=== PATIENT | female | born 1975 | race Hispanic/Latino ===

== ENCOUNTER 2021-08-25 15:00 | Inpatient (IN) | payer BC, OTHER ==
[~2021-08-25] VITALS: Ht 152.4 cm; Wt 80.9 kg
[2021-08-25] MEDS ORDERED: ACETAMINOPHEN WITH CODEINE 1 TAB TAB PO ONE (16:00)
[2021-08-25] MEDS ORDERED: ONDANSETRON 4MG TABLET ONE (16:52)
[2021-08-25] MEDS ORDERED: PROMETHAZINE HCL 25 MG/ML 1ML AMPULE IM ONE (17:00)
[2021-08-25] MEDS ORDERED: ONDANSETRON ODT 4MG TAB SL ONE (17:00)
[2021-08-25 17:07] LABS: BASOPHILS % (AUTO) 0.7 % (0.0-5.0); EOSINOPHILS % (AUTO) 7.1 % (0.0-8.0); HEMATOCRIT 44.4 % (36-48); LYMPHOCYTES % (AUTO) 33.9 % (21.0-51.0); MEAN CORPUSCULAR HEMOGLOBIN 30.5 pg (27.0-33.0); MEAN CORPUSCULAR HGB CONC 33.3 g/dL (32.0-36.0); MEAN CORPUSCULAR VOLUME 91.4 fL (79-99); MONOCYTES % (AUTO) 5.9 % (3.0-13.0); NEUTROPHILS % (AUTO) 51.9 % (40.0-77.0); PLATELET COUNT (AUTO) 163 K/uL (130-400); RED BLOOD CELL COUNT(AUTO) 4.86 MIL/uL (4.00-5.50); RED CELL DISTRIBUTION WIDTH 12.9 % (11.0-15.5); WHITE BLOOD COUNT (AUTO) 5.8 K/uL (4.8-10.8)
[2021-08-25] MEDS ORDERED: 0.9%NACL 50ML 50 ML IV ONE (17:07)
[2021-08-25 17:25] LABS: CREATININE 0.9 mg/dL (0.5-1.5); POTASSIUM 3.5 mmol/L (3.5-5.1)
[2021-08-25 17:46] LABS: ALBUMIN 3.7 g/dL (3.5-5.0); BILIRUBIN,TOTAL 4.4 mg/dL (0.2-1.0); CRP QUANTITATIVE 36.8 mg/L (0.00-9.0); TOTAL PROTEIN, SERUM 7.4 g/dL (6.0-8.3)
[2021-08-25] MEDS ORDERED: ACETAMINOPHEN WITH CODEINE 1 TAB TAB ONE (18:32)
[2021-08-25] MEDS ORDERED: NITROGLYCERIN 0.4 MG SL TAB SL PRN (19:30)
[2021-08-25] MEDS ORDERED: MORPHINE 2 MG SYG IV PRN (19:30)
[2021-08-25] MEDS ORDERED: HYDRALAZINE 20MG/ML VIAL IV PRN (19:30)
[2021-08-25] MEDS: PHARMACY COMMUNICATION MISC SCH ×3 (20:00→23:52)
[2021-08-25 20:12] LABS: AMYLASE 47 U/L (25-115); CHOLESTEROL 190 mg/dL (<200); HDL CHOLESTEROL 22 mg/dL (35-85); LDL DIRECT 112 mg/dL (0-99); LIPASE 99 U/L (114-286); TRIGLYCERIDES 236 mg/dL (30-200)
[2021-08-25] MEDS: INSULIN HUMULIN R 100 UNIT/ML 3ML SQ SCH (21:00)
[2021-08-25] MEDS: INSULIN GLARGINE 100 UNITS/ML 10 ML VIAL SQ SCH (21:00)
[2021-08-25 21:08] LABS: INR 1.31 (0.85-1.15); PROTHROMBIN TIME 13.9 SEC (9.6-11.6)
[2021-08-25 21:09] LABS: PARTIAL THROMBOPLASTIN TIME 26.1 SEC (26.3-35.5)
[2021-08-25] MEDS: LACTATED RINGERS 1000ML 1,000 ML IV SCH (21:29)
[2021-08-26] VITALS (21 sets, daily range): BP systolic 92–117; BP diastolic 52–77
[2021-08-26] MEDS: LACTATED RINGERS 1000ML 1,000 ML IV SCH ×3 (01:30→20:55)
[2021-08-26] MEDS ORDERED: INSU3INS3 SQ (01:35)
[2021-08-26] MEDS: ONDANSETRON 4MG INJ IV PRN ×3 (02:08→20:42)
[2021-08-26] MEDS ORDERED: PANT40TA54 PO (02:14)
[2021-08-26] MEDS ORDERED: BENA10TA77 PO (02:14)
[2021-08-26] MEDS ORDERED: SITA100T12 PO (02:17)
[2021-08-26] MEDS ORDERED: ESCI-8 PO (02:17)
[2021-08-26] MEDS ORDERED: EMPA25TA PO (02:17)
[2021-08-26] MEDS ORDERED: VERA120T92 PO (02:22)
[2021-08-26] MEDS ORDERED: IBUP1TAB PO (02:22)
[2021-08-26] MEDS ORDERED: MONT10TA32 PO (02:22)
[2021-08-26] MEDS ORDERED: PROM25SU58 RC (02:22)
[2021-08-26 02:27] LABS: APPEARANCE,URINE Clear (CLEAR); BILIRUBIN,URINE Moderate (NEGATIVE); COLOR,URINE Dark Yellow (YELLOW); GLUCOSE, URINE (UA) >=1000 mg/dL (NEGATIVE); KETONES,URINE Trace mg/dL (NEGATIVE); LEUKOCYTE ESTERASE ,URINE Trace (NEGATIVE); NITRATE,URINE Negative (NEGATIVE); OCCULT BLOOD,URINE Negative (NEGATIVE); PH,URINE 5.5 (5.0-8.0); PROTEIN,URINE Negative (NEGATIVE)
[2021-08-26 02:35] LABS: AMPHET/METH SCREEN,URINE NEGATIVE (NEGATIVE); BARBITURATE SCREEN, URINE NEGATIVE (NEGATIVE); BENZODIAZEPINES SCREEN,URINE NEGATIVE (NEGATIVE); CANNABINOID SCREEN,URINE NEGATIVE (NEGATIVE); COCAINE SCREEN,URINE NEGATIVE (NEGATIVE); OPIATE SCREEN,URINE POSITIVE (NEGATIVE); PHENCYCLIDINE SCREEN,URINE NEGATIVE (NEGATIVE)
[2021-08-26 02:36] LABS: BACTERIA,URINE None Seen /HPF (None Seen); RBC,URINE None Seen /HPF (0-1); WBC,URINE 0-1 /HPF (0-1); YEAST,URINE BUDDING None Seen /HPF (None Seen)
[2021-08-26 02:37] LABS: SQUAMOUS EPITHELIAL CELL,UR Rare /HPF (0-2)
[2021-08-26] MEDS: INSULIN HUMULIN R 100 UNIT/ML 3ML SQ SCH ×7 (05:35→20:10)
[2021-08-26] MEDS: PROMETHAZINE HCL 25 MG/ML 1ML AMPULE IM PRN ×2 (06:01→21:56)
[2021-08-26] MEDS: ENOXAPARIN SODIUM 40 MG/0.4 ML SYRINGE SQ SCH (09:00)
[2021-08-26 09:03] LABS: LACTATE DEHYDROGENASE 710 U/L (81-234)
[2021-08-26 09:08] LABS: GAMMA GLUTAMYL TRANSFERASE 669 U/L (5-85)
[2021-08-26 09:12] LABS: % IRON SATURATION 51.9 % (22-44)
[2021-08-26] MEDS: PANTOPRAZOLE 40 MG/VIAL IVP SCH (10:02)
[2021-08-26 10:55] LABS: HEMATOCRIT 42.8 % (36-48); MEAN CORPUSCULAR HGB CONC 33.9 g/dL (32.0-36.0); MEAN CORPUSCULAR VOLUME 91.5 fL (79-99); PLATELET COUNT (AUTO) 170 K/uL (130-400); RED BLOOD CELL COUNT(AUTO) 4.68 MIL/uL (4.00-5.50); RED CELL DISTRIBUTION WIDTH 13.2 % (11.0-15.5); WHITE BLOOD COUNT (AUTO) 6.2 K/uL (4.8-10.8)
[2021-08-26 11:04] LABS: CREATININE 0.8 mg/dL (0.5-1.5); POTASSIUM 3.6 mmol/L (3.5-5.1)
[2021-08-26 11:08] LABS: ALBUMIN 3.4 g/dL (3.5-5.0)
[2021-08-26 11:31] LABS: BILIRUBIN,TOTAL 4.7 mg/dL (0.2-1.0); TOTAL PROTEIN, SERUM 7.1 g/dL (6.0-8.3)
[2021-08-26] MEDS ORDERED: LIDOCAINE HCL 1% 20 ML VIAL ONE (11:50)
[2021-08-26] MEDS ORDERED: PROPOFOL 10 MG/ML 20ML VIAL IV ONE ×3 (11:50→12:35)
[2021-08-26 11:51] LABS: BAND NEUTROPHILS % (MANUAL) 5 % (0-2); EOSINOPHILS % (MANUAL) 9 % (1-6); LYMPHOCYTES % (MANUAL) 28 % (22-44); MAN.DIFF COMMENT-IMPRESSION MANUAL DIFFERENTIAL; MONOCYTES % (MANUAL) 4 % (2-9); PLATELET MORPHOLOGY COMMENT ADEQUATE; SEGMENTED NEUTROPHILS % 54 % (40-70)
[2021-08-26] MEDS ORDERED: FENTANYL CITRATE PF 50 MCG/1 ML 2ML VIAL ONE (12:18)
[2021-08-26] MEDS ORDERED: LORAZEPAM 2 MG/ML 1 ML VIAL IVP ONE ×3 (15:00→17:30)
[2021-08-26] MEDS ORDERED: PHARMACY COMMUNICATION MISC SCH (15:30)
[2021-08-26] MEDS: INSULIN GLARGINE 100 UNITS/ML 10 ML VIAL SQ SCH (20:55)
[2021-08-27] VITALS (25 sets, daily range): BP systolic 94–132; BP diastolic 57–87
[2021-08-27] MEDS: PROMETHAZINE HCL 25 MG/ML 1ML AMPULE IM PRN ×2 (04:21→23:52)
[2021-08-27] MEDS: LACTATED RINGERS 1000ML 1,000 ML IV SCH ×3 (04:21→19:51)
[2021-08-27 05:40] LABS: BASOPHILS % (AUTO) 0.5 % (0.0-5.0); EOSINOPHILS % (AUTO) 6.5 % (0.0-8.0); HEMATOCRIT 40.8 % (36-48); LYMPHOCYTES % (AUTO) 29.7 % (21.0-51.0); MEAN CORPUSCULAR HEMOGLOBIN 30.6 pg (27.0-33.0); MEAN CORPUSCULAR HGB CONC 33.3 g/dL (32.0-36.0); MEAN CORPUSCULAR VOLUME 91.9 fL (79-99); MONOCYTES % (AUTO) 6.5 % (3.0-13.0); NEUTROPHILS % (AUTO) 56.5 % (40.0-77.0); PLATELET COUNT (AUTO) 149 K/uL (130-400); RED BLOOD CELL COUNT(AUTO) 4.44 MIL/uL (4.00-5.50); RED CELL DISTRIBUTION WIDTH 13.2 % (11.0-15.5); WHITE BLOOD COUNT (AUTO) 5.9 K/uL (4.8-10.8)
[2021-08-27 06:19] LABS: ALBUMIN 2.9 g/dL (3.5-5.0); BILIRUBIN,TOTAL 5.3 mg/dL (0.2-1.0); CREATININE 0.8 mg/dL (0.5-1.5); CRP QUANTITATIVE 37.4 mg/L (0.00-9.0); POTASSIUM 3.4 mmol/L (3.5-5.1); TOTAL PROTEIN, SERUM 6.4 g/dL (6.0-8.3)
[2021-08-27] MEDS ORDERED: FENTANYL CITRATE PF 50 MCG/1 ML 2ML VIAL ONE (06:26)
[2021-08-27] MEDS ORDERED: PROPOFOL 10 MG/ML 20ML VIAL IV ONE (06:26)
[2021-08-27] MEDS ORDERED: LIDOCAINE HCL 400MG/20ML VIAL ONE (06:28)
[2021-08-27] MEDS: INSULIN HUMULIN R 100 UNIT/ML 3ML SQ SCH ×7 (06:29→20:02)
[2021-08-27] MEDS ORDERED: ROCURONIUM 10MG/1ML SYR 10 MG/ML ML ONE (06:33)
[2021-08-27 06:45] LABS: ERYTHROCYTE SEDIMENTATION RATE 25 MM/HR (0-20)
[2021-08-27] MEDS ORDERED: IOHEXOL-350 50ML VIAL IV ONE (07:16)
[2021-08-27] MEDS ORDERED: DiphenhydrAMINE HCL 50 MG/ML VIAL ONE (07:18)
[2021-08-27] MEDS ORDERED: INDOMETHACIN 50 MG SUPP.RECT RC SCH (08:00)
[2021-08-27 08:13] LABS: HEPATITIS A ANTIBODY IGM Negative (Negative); HEPATITIS B CORE IGM Negative (Negative); HEPATITIS Bs ANTIGEN SCREEN P Negative (Negative)
[2021-08-27] MEDS ORDERED: METOCLOPRAMIDE 10 MG/2 ML VIAL ONE (08:49)
[2021-08-27] MEDS: ENOXAPARIN SODIUM 40 MG/0.4 ML SYRINGE SQ SCH (09:00)
[2021-08-27] MEDS: PANTOPRAZOLE 40 MG/VIAL IVP SCH (10:06)
[2021-08-27 10:31] LABS: BILIRUBIN,DIRECT 4.9 mg/dL (0.0-0.3); BILIRUBIN,TOTAL 6.2 mg/dL (0.2-1.0)
[2021-08-27 17:09] LABS: ALPHA-1-ANTITRYPSIN 188 mg/dL (101-187)
[2021-08-27] MEDS: ONDANSETRON 4MG INJ IV PRN (19:40)
[2021-08-27] MEDS: INSULIN GLARGINE 100 UNITS/ML 10 ML VIAL SQ SCH (21:00)
[2021-08-27] MEDS: MEPERIDINE-PF 25 MG/ML SYG IV PRN (21:14)
[2021-08-27] MEDS ORDERED: LIDOCAINE HCL-MPF 1% 2ML VIAL IV PRN (23:00)
[2021-08-27] MEDS ORDERED: POTASSIUM CHLORIDE 20MEQ/100ML 100 ML IV PRN (23:00)
[2021-08-27] MEDS ORDERED: POTASSIUM CHLORIDE 10% ELIXIR 20 MEQ/15 ML UDCUP PO PRN (23:00)
[2021-08-28] MEDS ORDERED: POTASSIUM CHLORIDE 20MEQ/100ML 100 ML IV ONE (01:06)
[2021-08-28 03:36] VITALS: BP 105/61
[2021-08-28] MEDS: LACTATED RINGERS 1000ML 1,000 ML IV SCH ×3 (03:39→20:48)
[2021-08-28] MEDS: INSULIN HUMULIN R 100 UNIT/ML 3ML SQ SCH ×7 (05:38→20:53)
[2021-08-28 08:00] VITALS: BP 103/72
[2021-08-28 08:28] LABS: BASOPHILS % (AUTO) 0.5 % (0.0-5.0); EOSINOPHILS % (AUTO) 7.2 % (0.0-8.0); HEMATOCRIT 45.7 % (36-48); MEAN CORPUSCULAR HEMOGLOBIN 30.9 pg (27.0-33.0); MEAN CORPUSCULAR HGB CONC 32.8 g/dL (32.0-36.0); MONOCYTES % (AUTO) 6.7 % (3.0-13.0); NEUTROPHILS % (AUTO) 53.7 % (40.0-77.0); PLATELET COUNT (AUTO) 182 K/uL (130-400); RED BLOOD CELL COUNT(AUTO) 4.86 MIL/uL (4.00-5.50); RED CELL DISTRIBUTION WIDTH 13.6 % (11.0-15.5); WHITE BLOOD COUNT (AUTO) 5.5 K/uL (4.8-10.8)
[2021-08-28 08:53] LABS: ALBUMIN 3.1 g/dL (3.5-5.0); BILIRUBIN,TOTAL 7.5 mg/dL (0.2-1.0); CREATININE 0.8 mg/dL (0.5-1.5); POTASSIUM 3.9 mmol/L (3.5-5.1); TOTAL PROTEIN, SERUM 6.9 g/dL (6.0-8.3)
[2021-08-28] MEDS: ENOXAPARIN SODIUM 40 MG/0.4 ML SYRINGE SQ SCH (09:00)
[2021-08-28] MEDS: PANTOPRAZOLE 40 MG/VIAL IVP SCH (09:40)
[2021-08-28] MEDS: ONDANSETRON 4MG INJ IV PRN ×2 (09:44→19:29)
[2021-08-28 11:48] VITALS: BP 99/63
[2021-08-28] MEDS: MEPERIDINE-PF 25 MG/ML SYG IV PRN ×2 (14:51→20:48)
[2021-08-28 16:00] VITALS: BP 112/73
[2021-08-28 19:45] VITALS: BP 114/68
[2021-08-28] MEDS: PROMETHAZINE HCL 25 MG/ML 1ML AMPULE IM PRN (20:46)
[2021-08-28] MEDS: INSULIN GLARGINE 100 UNITS/ML 10 ML VIAL SQ SCH (20:53)
[2021-08-28] MEDS ORDERED: ALPRAZOLAM 0.25 MG TABLET ONE (23:57)
[2021-08-29] VITALS (7 sets, daily range): BP systolic 104–123; BP diastolic 51–80
[2021-08-29] MEDS ORDERED: ALPRAZOLAM 0.25 MG TABLET PO ONE
[2021-08-29] MEDS: INSULIN HUMULIN R 100 UNIT/ML 3ML SQ SCH ×7 (00:29→19:55)
[2021-08-29] MEDS: LACTATED RINGERS 1000ML 1,000 ML IV SCH ×3 (04:24→19:30)
[2021-08-29] MEDS: ONDANSETRON 4MG INJ IV PRN ×2 (04:24→18:12)
[2021-08-29 04:57] LABS: BASOPHILS % (AUTO) 0.7 % (0.0-5.0); EOSINOPHILS % (AUTO) 8.4 % (0.0-8.0); HEMATOCRIT 43.7 % (36-48); LYMPHOCYTES % (AUTO) 34.6 % (21.0-51.0); MEAN CORPUSCULAR HEMOGLOBIN 30.3 pg (27.0-33.0); MEAN CORPUSCULAR HGB CONC 33.2 g/dL (32.0-36.0); MEAN CORPUSCULAR VOLUME 91.2 fL (79-99); MONOCYTES % (AUTO) 5.5 % (3.0-13.0); NEUTROPHILS % (AUTO) 50.1 % (40.0-77.0); PLATELET COUNT (AUTO) 157 K/uL (130-400); RED BLOOD CELL COUNT(AUTO) 4.79 MIL/uL (4.00-5.50); RED CELL DISTRIBUTION WIDTH 13.6 % (11.0-15.5); WHITE BLOOD COUNT (AUTO) 5.6 K/uL (4.8-10.8)
[2021-08-29 05:28] LABS: ALBUMIN 2.9 g/dL (3.5-5.0); BILIRUBIN,TOTAL 8.2 mg/dL (0.2-1.0); CREATININE 0.8 mg/dL (0.5-1.5); POTASSIUM 3.7 mmol/L (3.5-5.1); TOTAL PROTEIN, SERUM 6.7 g/dL (6.0-8.3)
[2021-08-29] MEDS: PANTOPRAZOLE 40 MG/VIAL IVP SCH (08:55)
[2021-08-29] MEDS: ENOXAPARIN SODIUM 40 MG/0.4 ML SYRINGE SQ SCH (09:00)
[2021-08-29] MEDS ORDERED: NON-FORMULARY MEDICATION 1 EACH PO SCH (09:00)
[2021-08-29] MEDS ORDERED: CITALOPRAM 20 MG TABLET PO SCH (09:00)
[2021-08-29] MEDS: MEPERIDINE-PF 25 MG/ML SYG IV PRN ×2 (13:48→20:47)
[2021-08-29] MEDS: INSULIN GLARGINE 100 UNITS/ML 10 ML VIAL SQ SCH (20:25)
[2021-08-29] MEDS: PROMETHAZINE HCL 25 MG/ML 1ML AMPULE IM PRN (20:47)
[2021-08-30] MEDS: IPRATROPIUM/ALBUTEROL SULFATE 3 ML SOLUTION IH SCH ×4 (00:07→18:41)
[2021-08-30] MEDS: LACTATED RINGERS 1000ML 1,000 ML IV SCH ×2 (02:38→11:35)
[2021-08-30 03:41] VITALS: BP 121/94
[2021-08-30 03:57] LABS: BASOPHILS % (AUTO) 0.5 % (0.0-5.0); EOSINOPHILS % (AUTO) 9.2 % (0.0-8.0); HEMATOCRIT 42.6 % (36-48); LYMPHOCYTES % (AUTO) 29.8 % (21.0-51.0); MEAN CORPUSCULAR HEMOGLOBIN 30.3 pg (27.0-33.0); MEAN CORPUSCULAR HGB CONC 32.6 g/dL (32.0-36.0); MEAN CORPUSCULAR VOLUME 92.8 fL (79-99); NEUTROPHILS % (AUTO) 52.8 % (40.0-77.0); PLATELET COUNT (AUTO) 144 K/uL (130-400); RED BLOOD CELL COUNT(AUTO) 4.59 MIL/uL (4.00-5.50); RED CELL DISTRIBUTION WIDTH 13.9 % (11.0-15.5); WHITE BLOOD COUNT (AUTO) 5.5 K/uL (4.8-10.8)
[2021-08-30 04:24] LABS: ALBUMIN 2.7 g/dL (3.5-5.0); BILIRUBIN,TOTAL 9.6 mg/dL (0.2-1.0); CREATININE 0.9 mg/dL (0.5-1.5); POTASSIUM 3.5 mmol/L (3.5-5.1); TOTAL PROTEIN, SERUM 6.3 g/dL (6.0-8.3)
[2021-08-30] MEDS: KCL 20 MEQ ERTAB PO PRN ×2 (04:55→20:08)
[2021-08-30] MEDS: INSULIN HUMULIN R 100 UNIT/ML 3ML SQ SCH ×7 (05:48→21:10)
[2021-08-30] MEDS: BUDESONIDE 0.5 MG/2 ML INH IH SCH ×2 (06:21→18:41)
[2021-08-30] MEDS ORDERED: PHYTONADIONE 10 MG/1 ML AMP IM ONE (08:00)
[2021-08-30 08:02] VITALS: BP 109/68
[2021-08-30] MEDS: ENOXAPARIN SODIUM 40 MG/0.4 ML SYRINGE SQ SCH (09:00)
[2021-08-30] MEDS: PANTOPRAZOLE 40 MG/VIAL IVP SCH (09:55)
[2021-08-30 11:23] VITALS: BP 106/75
[2021-08-30] MEDS: PROMETHAZINE HCL 25 MG/ML 1ML AMPULE IM PRN ×2 (12:41→20:09)
[2021-08-30] MEDS ORDERED: PHYTONADIONE 10 MG/1 ML AMP IM SCH (14:00)
[2021-08-30] MEDS: MEPERIDINE-PF 25 MG/ML SYG IV PRN ×2 (14:22→20:11)
[2021-08-30 15:41] VITALS: BP 124/74
[2021-08-30 20:03] VITALS: BP 137/76
[2021-08-30] MEDS ORDERED: LACTATED RINGERS 1000ML 1,000 ML IV ONE (20:21)
[2021-08-30] MEDS: LEXAPRO 10 MG PO SCH (21:00)
[2021-08-30] MEDS: INSULIN GLARGINE 100 UNITS/ML 10 ML VIAL SQ SCH (21:11)
[2021-08-30] MEDS ORDERED: ACETAMINOPHEN 325 MG TAB PO PRN (22:45)
[2021-08-30] MEDS: ONDANSETRON 4MG INJ IV PRN (22:52)
[2021-08-30 23:15] VITALS: BP 113/65
[2021-08-31] MEDS: IPRATROPIUM/ALBUTEROL SULFATE 3 ML SOLUTION IH SCH ×5 (00:19→23:51)
[2021-08-31 03:41] VITALS: BP 110/69
[2021-08-31 05:17] LABS: BASOPHILS % (AUTO) 0.4 % (0.0-5.0); EOSINOPHILS % (AUTO) 8.3 % (0.0-8.0); HEMATOCRIT 42.3 % (36-48); LYMPHOCYTES % (AUTO) 33.5 % (21.0-51.0); MEAN CORPUSCULAR HEMOGLOBIN 30.5 pg (27.0-33.0); MEAN CORPUSCULAR HGB CONC 32.9 g/dL (32.0-36.0); MEAN CORPUSCULAR VOLUME 92.8 fL (79-99); MONOCYTES % (AUTO) 6.9 % (3.0-13.0); PLATELET COUNT (AUTO) 175 K/uL (130-400); RED BLOOD CELL COUNT(AUTO) 4.56 MIL/uL (4.00-5.50); RED CELL DISTRIBUTION WIDTH 14.6 % (11.0-15.5); WHITE BLOOD COUNT (AUTO) 5.7 K/uL (4.8-10.8)
[2021-08-31 05:34] LABS: HEMOGLOBIN A1C 8.9 % (4.0-6.0)
[2021-08-31 05:52] LABS: ALBUMIN 2.8 g/dL (3.5-5.0); BILIRUBIN,TOTAL 11.7 mg/dL (0.2-1.0); CREATININE 0.8 mg/dL (0.5-1.5); POTASSIUM 4.2 mmol/L (3.5-5.1); TOTAL PROTEIN, SERUM 6.4 g/dL (6.0-8.3)
[2021-08-31] MEDS: INSULIN HUMULIN R 100 UNIT/ML 3ML SQ SCH ×7 (06:05→21:30)
[2021-08-31] MEDS: BUDESONIDE 0.5 MG/2 ML INH IH SCH ×2 (06:32→18:36)
[2021-08-31 08:00] VITALS: BP 101/62
[2021-08-31] MEDS: ENOXAPARIN SODIUM 40 MG/0.4 ML SYRINGE SQ SCH ×2 (09:00→10:12)
[2021-08-31] MEDS: PANTOPRAZOLE 40 MG/VIAL IVP SCH (10:12)
[2021-08-31] MEDS: MONTELUKAST SODIUM 10 MG TAB PO SCH (10:12)
[2021-08-31 12:00] VITALS: BP 93/52
[2021-08-31] MEDS: ONDANSETRON 4MG INJ IV PRN ×2 (14:53→21:29)
[2021-08-31 16:00] VITALS: BP 113/64
[2021-08-31] MEDS ORDERED: IBUPROFEN 600 MG TABLET PO ONE (18:30)
[2021-08-31 19:00] VITALS: BP 97/62
[2021-08-31] MEDS: LEXAPRO 10 MG PO SCH (21:00)
[2021-08-31] MEDS: INSULIN GLARGINE 100 UNITS/ML 10 ML VIAL SQ SCH (21:32)
[2021-08-31] MEDS ORDERED: KETOROLAC 30MG VIAL (30MG/ML) IV PRN (22:00)
[2021-09-01] VITALS: BP 99/62
[2021-09-01 04:00] VITALS: BP 100/65
[2021-09-01 04:46] LABS: BASOPHILS % (AUTO) 0.4 % (0.0-5.0); EOSINOPHILS % (AUTO) 9.2 % (0.0-8.0); HEMATOCRIT 43.2 % (36-48); LYMPHOCYTES % (AUTO) 30.5 % (21.0-51.0); MEAN CORPUSCULAR HEMOGLOBIN 30.6 pg (27.0-33.0); MEAN CORPUSCULAR HGB CONC 33.1 g/dL (32.0-36.0); MEAN CORPUSCULAR VOLUME 92.5 fL (79-99); MONOCYTES % (AUTO) 7.3 % (3.0-13.0); NEUTROPHILS % (AUTO) 51.6 % (40.0-77.0); PLATELET COUNT (AUTO) 181 K/uL (130-400); RED BLOOD CELL COUNT(AUTO) 4.67 MIL/uL (4.00-5.50); RED CELL DISTRIBUTION WIDTH 15.3 % (11.0-15.5); WHITE BLOOD COUNT (AUTO) 4.8 K/uL (4.8-10.8)
[2021-09-01 05:22] LABS: ALBUMIN 2.8 g/dL (3.5-5.0); BILIRUBIN,TOTAL 14.5 mg/dL (0.2-1.0); CREATININE 0.8 mg/dL (0.5-1.5); POTASSIUM 3.6 mmol/L (3.5-5.1); TOTAL PROTEIN, SERUM 6.6 g/dL (6.0-8.3)
[2021-09-01] MEDS: ONDANSETRON 4MG INJ IV PRN (05:57)
[2021-09-01] MEDS: INSULIN HUMULIN R 100 UNIT/ML 3ML SQ SCH ×4 (06:04→11:30)
[2021-09-01] MEDS: IPRATROPIUM/ALBUTEROL SULFATE 3 ML SOLUTION IH SCH ×2 (06:26→11:37)
[2021-09-01] MEDS: BUDESONIDE 0.5 MG/2 ML INH IH SCH (06:26)
[2021-09-01 08:28] VITALS: BP 110/74
[2021-09-01] MEDS: ENOXAPARIN SODIUM 40 MG/0.4 ML SYRINGE SQ SCH (09:00)
[2021-09-01] MEDS: PANTOPRAZOLE 40 MG/VIAL IVP SCH (10:08)
[2021-09-01] MEDS: MONTELUKAST SODIUM 10 MG TAB PO SCH (10:09)
[2021-09-01 11:32] VITALS: BP 100/68
[2021-09-01] MEDS ORDERED: INSU3INS3 SQ (14:05)
[2021-09-01] MEDS ORDERED: INSU200I SQ (14:05)
== END 2021-09-01 21:50 | disposition home or self-care (01) | DRG 441 ==
LOC: EDH 15:00 → EDHIP 15:01 → 3AH 23:09 → EDHIP 23:27 → 4CH 08-26 00:06
PROVIDERS: ADMIT Internal Medicine; ATTEND Internal Medicine
PROC: 0DJ08ZZ Inspection of Upper Intestinal Tract, Via Natural or Artificial Opening Endoscopic (ICD-10-PCS; principal; 2021-08-26)
PROC: 0F7D8DZ Dilation of Pancreatic Duct with Intraluminal Device, Via Natural or Artificial Opening Endoscopic (ICD-10-PCS; 2021-08-27)
DX: B17.10 Acute hepatitis C without hepatic coma (principal); K85.90 Acute pancreatitis without necrosis or infection, unspecified; K83.8 Other specified diseases of biliary tract; E11.9 Type 2 diabetes mellitus without complications; I10 Essential (primary) hypertension; J45.909 Unspecified asthma, uncomplicated; E78.5 Hyperlipidemia, unspecified; R74.01 Elevation of levels of liver transaminase levels; K76.0 Fatty (change of) liver, not elsewhere classified; F40.240 Claustrophobia; R79.89 Other specified abnormal findings of blood chemistry; R93.2 Abnormal findings on diagnostic imaging of liver and biliary tract; R74.8 Abnormal levels of other serum enzymes; Z90.710 Acquired absence of both cervix and uterus; Z88.7 Allergy status to serum and vaccine; Z88.8 Allergy status to other drugs, medicaments and biological substances; Z91.041 Radiographic dye allergy status; Z91.040 Latex allergy status; Z88.5 Allergy status to narcotic agent; Z91.013 Allergy to seafood; Z79.4 Long term (current) use of insulin; I25.2 Old myocardial infarction; Z85.42 Personal history of malignant neoplasm of other parts of uterus; Z20.822 Contact with and (suspected) exposure to COVID-19
CPT/HCPCS: 36415; 43259; 43262; 43274; 71045; 74176; 74181; 74330; 76705; 80053; 80061; 80074; 80305; 81001; 82103; 82150; 82247; 82248; 82310; 82390; 82550; 82948; 82977; 83036; 83516; 83540; 83550; 83605; 83615; 83690; 83874; 84145; 84484; 85025; 85610; 85651; 85730; 86038; 86140; 86215; 86235; 86255; 86701; 87040; 87088; 87390; 87522; 87635; 87804; 87902; 94640; A4606; C1769; C2617; C9113; G0378; J1200; J1650; J1815; J1885; J2060; J2175; J2405; J2550; J2704; J2765; J3010; J3430; J3480; J3490; J7030; J7120; Q0162; Q9967